=== PATIENT | female | born 1960 | race Caucasian/White ===

== ENCOUNTER 2018-10-23 11:27 | Observation (INO) | payer OTHER ==
[~2018-10-23] VITALS: Ht 160 cm; Wt 50.6 kg
[2018-10-23] MEDS ORDERED: NITROGLYCERIN SINGLE TAB 0.4 MG SL ONE (12:21)
[2018-10-23] MEDS ORDERED: ASPIRIN 81 MG TABLET CHEW ONE ×2 (12:21→12:39)
[2018-10-23] MEDS ORDERED: SODIUM CHLORIDE FLUSH 10ML SYR IVF ONE (12:30)
[2018-10-23] MEDS ORDERED: ASPIRIN 81 MG TABLET CHEW PO ONE (12:30)
[2018-10-23] MEDS: NITROGLYCERIN SINGLE TAB 0.4 MG SL PRN ×2 (12:49→13:09)
[2018-10-23 12:52] LABS: BASOPHILS # (AUTO) 0.01 x10^3/uL (0-0.1); BASOPHILS % (AUTO) 0 % (0-1); EOSINOPHILS # (AUTO) 0.03 x10^3/uL (0-0.4); EOSINOPHILS % (AUTO) 0 % (1-7); LYMPHOCYTES # (AUTO) 1.93 x10^3/uL (1-3.4); LYMPHOCYTES % (AUTO) 28 % (22-44); MD NO; MEAN CORPUSCULAR HGB CONC 33.9 g/dL (32.4-35.8); MEAN CORPUSCULAR VOLUME 91.5 fL (80-100); MEAN PLATELET VOLUME 8.7 fL (7.4-10.4); MONOCYTES # (AUTO) 0.36 x10^3/uL (0.2-0.8); MONOCYTES % (AUTO) 5 % (2-9); NEUTROPHILS % (AUTO) 67 % (42-75); PLATELET COUNT 232 x10^3/uL (130-400); RED BLOOD COUNT 4.57 x10^6/uL (3.82-5.3); RED CELL DISTRIBUTION WIDTH 13.1 % (9.6-15.2)
[2018-10-23 13:01] LABS: ALANINE AMINOTRANSFERASE 23 U/L (12-78); ANION GAP 7 mmol/L (5-15); CALCIUM 9.5 mg/dL (8.5-10.1); CHLORIDE 108 mmol/L (98-107); CREATININE 0.64 mg/dL (0.55-1.02)
[2018-10-23 13:05] LABS: ALKALINE PHOSPHATASE 48 U/L (45-117); BILIRUBIN,TOTAL 0.5 mg/dL (0.2-1.0); TOTAL PROTEIN 7.8 g/dL (6.4-8.2); TROPONIN I < 0.015 ng/mL (0.000-0.045)
[2018-10-23 13:06] LABS: INTERNATIONAL NORMALIZED RATIO 0.97 (0.93-1.1); PROTHROMBIN TIME 10.3 Seconds (9.6-11.5)
[2018-10-23] MEDS ORDERED: morphine SULFATE 10 MG/ML, 1ML IVPush ONE (14:30)
[2018-10-23 16:19] VITALS: BP 125/75
[2018-10-23] MEDS ORDERED: BUTALB/APAP/CAFFEINE 50MG/325MG/40MG PO PRN (16:30)
[2018-10-23] MEDS ORDERED: ACETAMINOPHEN 325 MG TABLET PO PRN (16:30)
[2018-10-23] MEDS ORDERED: NITROGLYCERIN 0.4 MG/SPRAY SL PRN (16:30)
[2018-10-23] MEDS ORDERED: LIDODERM 5% PATCH TD PRN (16:30)
[2018-10-23] MEDS ORDERED: KETOROLAC 30 MG/1 ML IV PRN (16:30)
[2018-10-23] MEDS ORDERED: NITROGLYCERIN 0.4 MG BOTTLE (25 TABS) SL PRN (16:30)
[2018-10-23] MEDS: ENOXAPARIN 40 MG/0.4 ML SQ SCH (16:35)
[2018-10-23 16:37] LABS: CHOL/HDL RATIO 3.5; LDL/HDL RATIO 1.7 (0.5-3.0)
[2018-10-23 19:52] VITALS: BP 121/77
[2018-10-23 19:57] LABS: TROPONIN I < 0.015 ng/mL (0.000-0.045)
[2018-10-23] MEDS: SODIUM CHLORIDE FLUSH 10ML SYR IVF SCH (20:05)
[2018-10-24 01:25] VITALS: BP 115/75
[2018-10-24 01:45] LABS: TROPONIN I < 0.015 ng/mL (0.000-0.045)
[2018-10-24 05:47] LABS: CHLORIDE 107 mmol/L (98-107)
[2018-10-24 05:53] LABS: ANION GAP 9 mmol/L (5-15); CALCIUM 8.9 mg/dL (8.5-10.1); CREATININE 0.67 mg/dL (0.55-1.02)
[2018-10-24] MEDS ORDERED: ASPIRIN 325 MG TABLET EC PO SCH (06:00)
[2018-10-24 07:02] VITALS: BP 111/73
[2018-10-24] MEDS: SODIUM CHLORIDE FLUSH 10ML SYR IVF SCH (08:32)
[2018-10-24] MEDS ORDERED: [UNRECOGNIZED DRUG - CODE] PO (08:38)
[2018-10-24 14:40] VITALS: BP 114/73
[2018-10-24] MEDS ORDERED: PANT40TA3 PO (16:16)
[2018-10-24] MEDS ORDERED: NAPR-856 PO (16:16)
[2018-10-24] MEDS ORDERED: LIDO700A20 TD (16:16)
[2018-10-24] MEDS: ENOXAPARIN 40 MG/0.4 ML SQ SCH (16:30)
== END 2018-10-24 18:25 | disposition home or self-care (01) ==
LOC: ED 12:47 → EDIP 14:20 → INTOOBSV 14:20 → 5SO 15:46
PROVIDERS: ADMIT Hospitalist; ATTEND Hospitalist
DX: R07.89 Other chest pain (principal); K21.9 Gastro-esophageal reflux disease without esophagitis; Z79.82 Long term (current) use of aspirin; Z82.49 Family history of ischemic heart disease and other diseases of the circulatory system; Z87.442 Personal history of urinary calculi
CPT/HCPCS: 36415; 71045; 78452; 80048; 80053; 80061; 83690; 84484; 85025; 85379; 85610; 85730; 93005; 93017; 96372; 99284; A9502; C9898; G0378; J1650; 99285